=== PATIENT | female | born 1945 | race Caucasian/White ===

== ENCOUNTER → 2017-11-07 | Day surgery (SDC) | payer MEDICARE, OTHER, SELFPAY | END | disposition home or self-care (01) | PROVIDERS: PCP Family Medicine; Visit Provider Ophthalmology | DX: H25.11 Age-related nuclear cataract, right eye (principal); F03.90 Unspecified dementia, unspecified severity, without behavioral disturbance, psychotic disturbance, mood disturbance, and anxiety; F41.9 Anxiety disorder, unspecified | CPT/HCPCS: 66984; J2704 ==

== ENCOUNTER → 2018-04-29 09:29 | Outpatient (CLI) | payer MEDICARE, OTHER, SELFPAY ==
[2018-04-29 11:27] LABS: Alanine Aminotransferase 29 IU/L (9-52); Albumin 4.2 g/dL (3.5-5.0); Albumin Globulin Ratio 1.7 (1.0-2.8); Alkaline Phosphatase 82 U/L (38-126); Aspartate Aminotransferase 28 IU/L (14-36); BUN Creatinine Ratio 31.7 (6-22); Bilirubin Total 0.7 mg/dL (0.2-1.3); Blood Urea Nitrogen 19 mg/dL (7-17); Calcium 9.3 mg/dL (8.4-10.2); Carbon Dioxide 32 mmol/L (22-32); Chloride 102 mmol/L (98-107); Cholesterol 242 mg/dL (140-199); Estimated Glomerular Filt Rate > 60.0 mL/min (>60); Globulin 2.5 g/dL (1.7-4.1); Glucose 86 mg/dL (80-110); HDL Cholesterol 66 mg/dL (40-60); HEMOLYSIS < 15 (0-50); LDL Cholesterol Calculated 157 mg/dL (<100); Potassium 5.1 mmol/L (3.4-5.1); Sodium 143 mmol/L (137-145); Total Protein 6.7 g/dL (6.3-8.2); Triglycerides 93 mg/dL (35-150)
== END ==
PROVIDERS: Family Provider Family Medicine; PCP Family Medicine; Visit Provider Family Medicine
DX: E78.5 Hyperlipidemia, unspecified (principal); G31.84 Mild cognitive impairment of uncertain or unknown etiology
CPT/HCPCS: 36415; 80053; 80061

== ENCOUNTER 2018-04-30 11:05 | Emergency (ER) | payer MEDICARE, OTHER, SELFPAY ==
[2018-04-30 11:12] VITALS: BP 144/88; PULSE 61; RESP 14; TEMP 36.9; O2SAT 100; BMI 32.0
--- NOTE | 2018-04-30 11:46 | DI.RAD.S_ITS ---
PROCEDURE: XR FOOT RT MIN 3V INDICATIONS: fall with pain TECHNIQUE: 3 views of the foot were acquired. COMPARISON: [facility], CR, XR ANKLE RT MIN 3V, 04/30/2018, 11:51. FINDINGS: Bones: No fractures or dislocations. No suspicious bony lesions. Mild to moderate degenerative changes of the right foot joints are more prominent involving the forefoot joints. There are plantar and Achilles spurs present. Soft tissues: No tibiotalar joint effusion. Achilles tendon appears normal in thickness. IMPRESSION: No displaced fractures of the right foot are evident. Dictated by: Sav Hill M.D. on 04/30/2018 at 11:19 Approved by: Sav Hill M.D. on 04/30/2018 at 11:20
--- NOTE | 2018-04-30 11:46 | DI.RAD.S_ITS ---
PROCEDURE: XR ANKLE RT MIN 3V INDICATIONS: fall with pain TECHNIQUE: 3 views of the ankle were acquired. COMPARISON: [facility], , XR FOOT RT MIN 3V, 04/30/2018, 11:51. FINDINGS: Bones: No fractures or dislocations. Ankle mortise is normally aligned. No suspicious bony lesions. Mild degenerative changes of the hindfoot joints are present. Plantar and Achilles spurs are present. Soft tissues: No tibiotalar joint effusion. Achilles tendon appears normal in thickness. IMPRESSION: Mild degenerative changes of the ankle joint. No fractures. Dictated by: Sav Hill M.D. on 04/30/2018 at 11:20 Approved by: Sav Hill M.D. on 04/30/2018 at 11:21
[2018-04-30 12:15] VITALS: BP 139/83; PULSE 61; RESP 14; O2SAT 99
--- NOTE | 2018-04-30 12:15 | ED.LOWEXIN ---
HPI - Extremity Injury (Lower) <WILDER LucasBC - Last Filed: 04/30/18 13:50> General Chief Complaint: Extremity Injury, Lower Stated Complaint: fell hurt right foot Time Seen by Provider: 04/30/18 12:05 Source: patient and family Mode of arrival: ambulatory Limitations: no limitations History of Present Illness HPI Narrative: Patient is a 72-year-old female with history of dementia who presents with chief complaint of right ankle and foot pain. she states she was recently diagnosed with plantar fasciitis. She states that she was running across the road after a 3 mi walk and felt sudden pain in her right ankle and foot when she stepped down. She states she had a sensation of sudden swelling, but denies swelling at this point time. She states her heel bottom of foot and ankle hurts so bad she could not walk and her son had to help her get in the car to get here. She has not taken anything for the pain. She states she was wearing sneakers and denies any lacerations. Related Data Previous Rx's Medication Instructions Recorded clonidine HCl 0.1 mg tablet 0.1 mg PO QDAY #90 tab 02/11/18 loratadine 10 mg tablet 10 mg PO DAILY #90 tab 02/11/18 dextroamphetamine-amphetamine 10 10 mg PO BID #60 tab 04/05/18 mg tablet sertraline 50 mg tablet 50 mg PO DAILY #30 tab 04/05/18 memantine 10 mg tablet 10 mg PO BID #60 tab 04/17/18 Allergies Allergy/AdvReac Type Severity Reaction Status Date / Time rivastigmine [RIVASTIGMINE] Allergy Intermediate nausea/vomiting/abd Verified 04/30/18 13:13 pain codeine Allergy Mild VOMITING Verified 04/30/18 13:13 latex Allergy Mild LOCAL RASH Verified 04/30/18 13:13 adhesive AdvReac Mild SENSITIVE Verified 04/30/18 13:13 bupropion [From WELLBUTRIN] AdvReac Unknown hallucinati Verified 04/30/18 13:13 ons/disorie ntation Review of Systems <TJ Lucas - Last Filed: 04/30/18 13:50> Review of Systems GENERAL: Denies chills, fatigue, malaise, fever, sweats. HEENT: Denies sinus pain, ear pain, sore throat, difficulty swallowing, dizziness. RESPIRATORY: Denies dyspnea, cough, wheezing, hemoptysis, sputum. CARDIOVASCULAR: Denies chest pain, palpitations, orthopnea, edema, GASTROINTESTINAL: Denies nausea, vomiting, abdominal pain, diarrhea, constipation, melena. : Denies dysuria, frequency, incontinence, hematuria, urinary retention. MUSCULOSKELETAL: See HPI SKIN: see HPI NEUROLOGIC: Denies weakness, headache, numbness, change in speech, confusion, seizures, incoordination. PSYCHIATRIC: No concerning psychosocial issues. 12 point review of systems is negative except for those stated above Exam <AMINAH Lucas-BC - Last Filed: 04/30/18 13:50> Narrative Exam Narrative: GENERAL: This is a well-nourished, well-developed patient, lying on stretcher HEAD: Atraumatic. Normocephalic. No temporal or scalp tenderness. EYES: Pupils equal round and reactive. Extraocular motions intact. No scleral icterus. No injection or drainage. ENT: Nose without bleeding, purulent drainage or septal hematoma. Throat without erythema, tonsillar hypertrophy or exudate. Uvula midline. Airway patent. NECK: Trachea midline. No JVD or lymphadenopathy. Supple, nontender, no meningeal signs. CARDIOVASCULAR: Regular rate and rhythm RESPIRATORY: Clear to auscultation. Breath sounds equal bilaterally. No wheezes, rales, or rhonchi. EXTREMITIES: right foot has positive pedal pulses. Capillary refill less than 2 sec all toes right foot. Patient has pain to palpation of the dorsal aspect of her right foot, Achilles intact. Patient is able to flex, extend, pronate and supinate her right foot. BACK: Nontender without deformity or crepitance. No flank tenderness. NEURO: AOx3. SKIN: No abrasions swelling lacerations or deformity noted right foot and ankle. No ecchymosis noted. Initial Vital Signs Initial Vital Signs: Vital Signs Temperature 98.5 F 04/30/18 11:12 Pulse Rate 61 04/30/18 11:12 Respiratory Rate 14 04/30/18 11:12 Blood Pressure 144/88 H 04/30/18 11:12 Pulse Oximetry 100 04/30/18 11:12 <Jose Antonio Urbano DO - Last Filed: 04/30/18 13:59> Initial Vital Signs Initial Vital Signs: Vital Signs Temperature 98.5 F 04/30/18 11:12 Pulse Rate 61 04/30/18 11:12 Respiratory Rate 14 04/30/18 11:12 Blood Pressure 144/88 H 04/30/18 11:12 Pulse Oximetry 100 04/30/18 11:12 Course <TJ Lucas - Last Filed: 04/30/18 13:50> Orders Ordered: ED Orders 04/30/18 11:46 XR ankle RT min 3V Stat XR foot RT min 3V Stat Discontinued Medications Ketorolac Tromethamine (Toradol) 60 mg IM NOW ONE Stop: 04/30/18 12:34 Last Admin: 04/30/18 12:53 Dose: 60 mg Reevaluation(s) Reevaluation #1: Discussed negative x-ray results with patient. Discussed use of Toradol, wrapping ankle and ambulation. Time: 12:30 Vital Signs - 8 hr 04/30/18 11:12 04/30/18 12:15 Temperature 98.5 F Pulse Rate 61 61 Respiratory Rate 14 14 Blood Pressure 144/88 H Blood Pressure [Left Arm] 139/83 Pulse Oximetry 100 99 <Jose Antonio Urbano DO - Last Filed: 04/30/18 13:59> Orders Ordered: ED Orders 04/30/18 11:46 XR ankle RT min 3V Stat XR foot RT min 3V Stat Discontinued Medications Ketorolac Tromethamine (Toradol) 60 mg IM NOW ONE Stop: 04/30/18 12:34 Last Admin: 04/30/18 12:53 Dose: 60 mg Vital Signs - 8 hr 04/30/18 11:12 04/30/18 12:15 Temperature 98.5 F Pulse Rate 61 61 Respiratory Rate 14 14 Blood Pressure 144/88 H Blood Pressure [Left Arm] 139/83 Pulse Oximetry 100 99 MDM - Extremity Injury (Lower) <TJ Lucas - Last Filed: 04/30/18 13:50> Imaging Data foot xray: Radiologist's impression: [address] [address] XRay Report Signed Patient: Lanette Gray CMR#: [id number] : 6Acct:[id number] Age/Sex: 72 / FDate of Service: 04/30/18 Loc: ED Accession Number: [id number] Procedure: XR foot RT min 3V Ordering Provider: Jose Antonio Urbano D.O. PROCEDURE: XR FOOT RT MIN 3V INDICATIONS: fall with pain TECHNIQUE: 3 views of the foot were acquired. COMPARISON: [facility], CR, XR ANKLE RT MIN 3V, 04/30/2018, 11:51. FINDINGS: Bones: No fractures or dislocations. No suspicious bony lesions. Mild to moderate degenerative changes of the right foot joints are more prominent involving the forefoot joints. There are plantar and Achilles spurs present. Soft tissues: No tibiotalar joint effusion. Achilles tendon appears normal in thickness. IMPRESSION: No displaced fractures of the right foot are evident. Dictated by: Sav Hill M.D. on 04/30/2018 at 11:19 Approved by: Sav Hill M.D. on 04/30/2018 at 11:20 ankle xray: Radiologist's impression: [facility] DATE TYPE STATUS AUTHOR Hx 04/30/18 11:46 Sav Hill 04/30/18 11:46 Sav Hill GrayLanette frye C 72, F108/04/1944 [facility], ED - [facility] ED: R10 157.48cm 79.379kg BSA: 1.81m? BMI: 32.0kg/m? Extremity Injury, Lower Search Chart rivastigmine (RIVASTIGMINE) nausea/vomiting/abd pain codeine VOMITING latex LOCAL RASH adhesive SENSITIVE bupropion (From WELLBUTRIN) hallucinations/disorientation ONSET 03/05/13 06/07/11 05/01/14 06/29/14 06/29/14 06/29/14 06/28/15 05/16/17 05/16/17 Today 12:[address] [address] XRay Report Signed Patient: IsaacLanette CMR#: [id number] : 1945cct:[id number] Age/Sex: 72 / FDate of Service: 04/30/18 Loc: ED Accession Number: [id number] Procedure: XR ankle RT min 3V Ordering Provider: Jose Antonio Urbano D.O. PROCEDURE: XR ANKLE RT MIN 3V INDICATIONS: fall with pain TECHNIQUE: 3 views of the ankle were acquired. COMPARISON: [facility], CR, XR FOOT RT MIN 3V, 04/30/2018, 11:51. FINDINGS: Bones: No fractures or dislocations. Ankle mortise is normally aligned. No suspicious bony lesions. Mild degenerative changes of the hindfoot joints are present. Plantar and Achilles spurs are present. Soft tissues: No tibiotalar joint effusion. Achilles tendon appears normal in thickness. IMPRESSION: Mild degenerative changes of the ankle joint. No fractures. Dictated by: Sav Hill M.D. on 04/30/2018 at 11:20 Approved by: Sav Hill M.D. on 04/30/2018 at 11:21 MDM Narrative Medical decision making narrative: The patient presents with chief complaint of right-sided foot pain after taking heavy step while running across the street. She had a negative x-ray of her right foot and ankle. She is hemodynamically stable and pulse motor sensory is intact In her right foot. She was treated with Toradol in the emergency department. She was given an air cast for support. She states she has crutches at home. I discussed at length follow up with primary care for new or worsening symptoms. Discharge Plan Departure Patient Disposition: Home Clinical Impression: Acute pain of right foot Instructions: How To Perform RICE (Rest, Ice, Compress, Elevate), DI for Foot Pain Activity Restrictions/Additional Instructions: Your x-rays came back with no fracture seen. We have given you a pain injection called Toradol in the emergency department. Please do not take any NSAIDs for 6-8 hours after the injection. Please use rest, ice, compression and elevation. I think you may be having some pain related to her plantar fasciitis given where your pain is. Please follow-up with your primary care provider if worsening or no improvement. Prescriptions: No Action clonidine HCl 0.1 mg tablet 0.1 mg PO QDAY Qty: 90 RF: 1 loratadine [Claritin] 10 mg tablet 10 mg PO DAILY Qty: 90 RF: 1 memantine 10 mg tablet 10 mg PO BID Qty: 60 RF: 1 sertraline 50 mg tablet 50 mg PO DAILY Qty: 30 RF: 1 dextroamphetamine-amphetamine 10 mg tablet 10 mg PO BID Qty: 60 RF: 0 Referrals: Chantell Kuhn DO [Primary Care Provider] - <Jose Antonio Urbano DO - Last Filed: 04/30/18 13:59> Cosign ED Attending Nanda Attestation: I was available for consultation during this patient's emergency department encounter
--- NOTE | 2018-04-30 12:19 | ED_ITS ---
HPI - Extremity Injury (Lower) <WILDER LucasBC - Last Filed: 04/30/18 13:50> General Chief Complaint: Extremity Injury, Lower Stated Complaint: fell hurt right foot Time Seen by Provider: 04/30/18 12:05 Source: patient and family Mode of arrival: ambulatory Limitations: no limitations History of Present Illness HPI Narrative: Patient is a 72-year-old female with history of dementia who presents with chief complaint of right ankle and foot pain. she states she was recently diagnosed with plantar fasciitis. She states that she was running across the road after a 3 mi walk and felt sudden pain in her right ankle and foot when she stepped down. She states she had a sensation of sudden swelling, but denies swelling at this point time. She states her heel bottom of foot and ankle hurts so bad she could not walk and her son had to help her get in the car to get here. She has not taken anything for the pain. She states she was wearing sneakers and denies any lacerations. Related Data Previous Rx's Medication Instructions Recorded clonidine HCl 0.1 mg tablet 0.1 mg PO QDAY #90 tab 02/11/18 loratadine 10 mg tablet 10 mg PO DAILY #90 tab 02/11/18 dextroamphetamine-amphetamine 10 10 mg PO BID #60 tab 04/05/18 mg tablet sertraline 50 mg tablet 50 mg PO DAILY #30 tab 04/05/18 memantine 10 mg tablet 10 mg PO BID #60 tab 04/17/18 Allergies Allergy/AdvReac Type Severity Reaction Status Date / Time rivastigmine [RIVASTIGMINE] Allergy Intermediate nausea/vomiting/abd Verified 13:13 pain codeine Allergy Mild VOMITING Verified 04/30/18 13:13 latex Allergy Mild LOCAL RASH Verified 04/30/18 13:13 adhesive AdvReac Mild SENSITIVE Verified 04/30/18 13:13 bupropion [From WELLBUTRIN] AdvReac Unknown hallucinati Verified 04/30/18 13:13 ons/disorie ntation Review of Systems <TJ Lucas - Last Filed: 04/30/18 13:50> Review of Systems GENERAL: Denies chills, fatigue, malaise, fever, sweats. HEENT: Denies sinus pain, ear pain, sore throat, difficulty swallowing, dizziness. RESPIRATORY: Denies dyspnea, cough, wheezing, hemoptysis, sputum. CARDIOVASCULAR: Denies chest pain, palpitations, orthopnea, edema, GASTROINTESTINAL: Denies nausea, vomiting, abdominal pain, diarrhea, constipation, melena. : Denies dysuria, frequency, incontinence, hematuria, urinary retention. MUSCULOSKELETAL: See HPI SKIN: see HPI NEUROLOGIC: Denies weakness, headache, numbness, change in speech, confusion, seizures, incoordination. PSYCHIATRIC: No concerning psychosocial issues. 12 point review of systems is negative except for those stated above Exam <AMINAH Lucas-BC - Last Filed: 04/30/18 13:50> Narrative Exam Narrative: GENERAL: This is a well-nourished, well-developed patient, lying on stretcher HEAD: Atraumatic. Normocephalic. No temporal or scalp tenderness. EYES: Pupils equal round and reactive. Extraocular motions intact. No scleral icterus. No injection or drainage. ENT: Nose without bleeding, purulent drainage or septal hematoma. Throat without erythema, tonsillar hypertrophy or exudate. Uvula midline. Airway patent. NECK: Trachea midline. No JVD or lymphadenopathy. Supple, nontender, no meningeal signs. CARDIOVASCULAR: Regular rate and rhythm RESPIRATORY: Clear to auscultation. Breath sounds equal bilaterally. No wheezes , rales, or rhonchi. EXTREMITIES: right foot has positive pedal pulses. Capillary refill less than 2 sec all toes right foot. Patient has pain to palpation of the dorsal aspect of her right foot, Achilles intact. Patient is able to flex, extend, pronate and supinate her right foot. BACK: Nontender without deformity or crepitance. No flank tenderness. NEURO: AOx3. SKIN: No abrasions swelling lacerations or deformity noted right foot and ankle. No ecchymosis noted. Initial Vital Signs Initial Vital Signs: Vital Signs Temperature 98.5 F 04/30/18 11:12 Pulse Rate 61 04/30/18 11:12 Respiratory Rate 14 04/30/18 11:12 Blood Pressure 144/88 H 04/30/18 11:12 Pulse Oximetry 100 04/30/18 11:12 <Jose Antonio Urbano DO - Last Filed: 04/30/18 13:59> Initial Vital Signs Initial Vital Signs: Vital Signs Temperature 98.5 F 04/30/18 11:12 Pulse Rate 61 04/30/18 11:12 Respiratory Rate 14 04/30/18 11:12 Blood Pressure 144/88 H 04/30/18 11:12 Pulse Oximetry 100 04/30/18 11:12 Course <TJ Lucas - Last Filed: 04/30/18 13:50> Orders Ordered: ED Orders 04/30/18 11:46 XR ankle RT min 3V Stat XR foot RT min 3V Stat Discontinued Medications Ketorolac Tromethamine (Toradol) 60 mg IM NOW ONE Stop: 04/30/18 12:34 Last Admin: 04/30/18 12:53 Dose: 60 mg Reevaluation(s) Reevaluation #1: Discussed negative x-ray results with patient. Discussed use of Toradol, wrapping ankle and ambulation. Time: 12:30 Vital Signs - 8 hr 04/30/18 11:12 04/30/18 12:15 Temperature 98.5 F Pulse Rate 61 61 Respiratory Rate 14 14 Blood Pressure 144/88 H Blood Pressure [Left Arm] 139/83 Pulse Oximetry 100 99 <Jose Antonio Urbano DO - Last Filed: 04/30/18 13:59> Orders Ordered: ED Orders 04/30/18 11:46 XR ankle RT min 3V Stat XR foot RT min 3V Stat Discontinued Medications Ketorolac Tromethamine (Toradol) 60 mg IM NOW ONE Stop: 04/30/18 12:34 Last Admin: 04/30/18 12:53 Dose: 60 mg Vital Signs - 8 hr 04/30/18 11:12 04/30/18 12:15 Temperature 98.5 F Pulse Rate 61 61 Respiratory Rate 14 14 Blood Pressure 144/88 H Blood Pressure [Left Arm] 139/83 Pulse Oximetry 100 99 MDM - Extremity Injury (Lower) <TJ Lucas - Last Filed: 04/30/18 13:50> Imaging Data foot xray: Radiologist's impression: [address] [address] XRay Report Signed Patient: Lanette Gray CMR#: [id number] : 6Acct:[id number] Age/Sex: 72 / FDate of Service: 04/30/18 Loc: ED Accession Number: [id number] Procedure: XR foot RT min 3V Ordering Provider: Jose Antonio Urbano D.O. PROCEDURE: XR FOOT RT MIN 3V INDICATIONS: fall with pain TECHNIQUE: 3 views of the foot were acquired. COMPARISON: [facility], CR, XR ANKLE RT MIN 3V, 04/30/2018, 11:51. FINDINGS: Bones: No fractures or dislocations. No suspicious bony lesions. Mild to moderate degenerative changes of the right foot joints are more prominent involving the forefoot joints. There are plantar and Achilles spurs present. Soft tissues: No tibiotalar joint effusion. Achilles tendon appears normal in thickness. IMPRESSION: No displaced fractures of the right foot are evident. Dictated by: Sav Hill M.D. on 04/30/2018 at 11:19 Approved by: Sav Hill M.D. on 04/30/2018 at 11:20 ankle xray: Radiologist's impression: [facility] DATE TYPE STATUS AUTHOR Hx 04/30/18 11:46 Sav Hill 04/30/18 11:46 Sav Hill GrayLanette frye C 72, F108/04/1944 [facility], ED - [facility] ED: R10 157.48cm 79.379kg BSA: 1.81m? BMI: 32.0kg/m? Extremity Injury, Lower Search Chart rivastigmine (RIVASTIGMINE) nausea/vomiting/abd pain codeine VOMITING latex LOCAL RASH adhesive SENSITIVE bupropion (From WELLBUTRIN) hallucinations/disorientation ONSET 03/05/13 06/07/11 05/01/14 06/29/14 06/29/14 06/29/14 06/28/15 05/16/17 05/16/17 Today 12:[address] [address] XRay Report Signed Patient: IsaacLanette CMR#: [id number] : 1945cct:[id number] Age/Sex: 72 / FDate of Service: 04/30/18 Loc: ED Accession Number: [id number] Procedure: XR ankle RT min 3V Ordering Provider: Jose Antonio Urbano D.O. PROCEDURE: XR ANKLE RT MIN 3V INDICATIONS: fall with pain TECHNIQUE: 3 views of the ankle were acquired. COMPARISON: [facility], CR, XR FOOT RT MIN 3V, 04/30/2018, 11:51. FINDINGS: Bones: No fractures or dislocations. Ankle mortise is normally aligned. No suspicious bony lesions. Mild degenerative changes of the hindfoot joints are present. Plantar and Achilles spurs are present. Soft tissues: No tibiotalar joint effusion. Achilles tendon appears normal in thickness. IMPRESSION: Mild degenerative changes of the ankle joint. No fractures. Dictated by: Sav Hill M.D. on 04/30/2018 at 11:20 Approved by: Sav Hill M.D. on 04/30/2018 at 11:21 MDM Narrative Medical decision making narrative: The patient presents with chief complaint of right-sided foot pain after taking heavy step while running across the street. She had a negative x-ray of her right foot and ankle. She is hemodynamically stable and pulse motor sensory is intact In her right foot. She was treated with Toradol in the emergency department. She was given an air cast for support. She states she has crutches at home. I discussed at length follow up with primary care for new or worsening symptoms. Discharge Plan Departure Patient Disposition: Home Clinical Impression: Acute pain of right foot Instructions: How To Perform RICE (Rest, Ice, Compress, Elevate), DI for Foot Pain Activity Restrictions/Additional Instructions: Your x-rays came back with no fracture seen. We have given you a pain injection called Toradol in the emergency department. Please do not take any NSAIDs for 6-8 hours after the injection. Please use rest, ice, compression and elevation. I think you may be having some pain related to her plantar fasciitis given where your pain is. Please follow-up with your primary care provider if worsening or no improvement. Prescriptions: No Action clonidine HCl 0.1 mg tablet 0.1 mg PO QDAY Qty: 90 RF: 1 loratadine [Claritin] 10 mg tablet 10 mg PO DAILY Qty: 90 RF: 1 memantine 10 mg tablet 10 mg PO BID Qty: 60 RF: 1 sertraline 50 mg tablet 50 mg PO DAILY Qty: 30 RF: 1 dextroamphetamine-amphetamine 10 mg tablet 10 mg PO BID Qty: 60 RF: 0 Referrals: Chantell Kuhn DO [Primary Care Provider] - <Jose Antonio Urbano DO - Last Filed: 04/30/18 13:59> Cosign ED Attending Nanda Attestation: I was available for consultation during this patient's emergency department encounter
[2018-04-30] MEDS: KETOROLAC 60 MG/2 ML VIAL IM (12:53)
[2018-04-30 13:30] VITALS: BP 136/86; PULSE 89; RESP 16; O2SAT 98
== END 2018-04-30 13:30 | disposition home or self-care (01) ==
PROVIDERS: Emergency Provider Nurse Practitioner Family; Family Provider Family Medicine; PCP Family Medicine
DX: M79.671 Pain in right foot (principal); Y93.02 Activity, running
CPT/HCPCS: 29515; 29540; 73610; 73630; 96372; 99283; J1885

== ENCOUNTER → 2019-01-24 15:31 | Outpatient (CLI) | payer MEDICARE, OTHER, SELFPAY ==
[2019-01-24 16:26] LABS: Add Manual Diff / Slide Review NO; Basophils Absolute Auto 0 /uL (0-100); Basophils Percent Auto 0.4 % (0-2); Eosinophils Absolute Auto 100 /uL (0-450); Eosinophils Percent Auto 1.2 % (2-4); Hematocrit 38.5 % (36-46); Hemoglobin 13.2 g/dL (12.0-16.0); Lymphocytes Absolute Auto 1800 /uL (1100-4500); Lymphocytes Percent Auto 27.5 % (25-40); Mean Corpuscular HGB Conc 34.2 % (30-36); Mean Corpuscular Hemoglobin 30.6 PG (26-34); Mean Corpuscular Volume 89.6 fL (80-100); Monocytes Absolute Auto 400 /uL (0-900); Monocytes Percent Auto 6.2 % (3-14); Neutrophils Absolute Auto 4400 /uL (1500-7000); Neutrophils Percent Auto 64.7 % (50-75); Platelet Count 258 X10^3/uL (150-400); Red Cell Distribution Width 13.7 % (11.6-14.8); White Blood Cell Count 6.7 X10^3/uL (4.5-11.0)
[2019-01-24 17:09] LABS: Erythrocyte Sedimentation Rate 20 MM/HR (0-20)
[2019-01-24 18:22] LABS: Alanine Aminotransferase 28 IU/L (9-52); Albumin 4.7 g/dL (3.5-5.0); Albumin Globulin Ratio 1.8 (1.0-2.8); Alkaline Phosphatase 97 U/L (38-126); Aspartate Aminotransferase 28 IU/L (14-36); Bilirubin Total 0.8 mg/dL (0.2-1.3); Blood Urea Nitrogen 18 mg/dL (7-17); C-Reactive Protein Quant 1.5 mg/dL (<1.0); Calcium 10.1 mg/dL (8.4-10.2); Carbon Dioxide 27 mmol/L (22-32); Chloride 105 mmol/L (98-107); Estimated Glomerular Filt Rate > 60.0 mL/min (>60); Globulin 2.6 g/dL (1.7-4.1); Glucose 86 mg/dL (80-110); HEMOLYSIS < 15 (0-50); Sodium 142 mmol/L (137-145); Total Protein 7.3 g/dL (6.3-8.2)
[2019-01-24 18:26] LABS: Potassium 5.7 mmol/L (3.4-5.1)
[2019-01-24 18:45] LABS: TSH w/ Reflex to FT4 3.62 uIU/mL (0.47-4.68)
== END ==
PROVIDERS: PCP Family Medicine; Visit Provider Registered Nurse
DX: K52.9 Noninfective gastroenteritis and colitis, unspecified (principal)
CPT/HCPCS: 36415; 80053; 84443; 85025; 85651; 86140

== ENCOUNTER → 2019-01-27 16:30 | Outpatient (CLI) | payer MEDICARE, OTHER, SELFPAY ==
[2019-01-31 22:45] LABS: Calprotectin, Stool 35.3 mcg/g
== END ==
PROVIDERS: PCP Family Medicine; Visit Provider Registered Nurse
DX: K52.9 Noninfective gastroenteritis and colitis, unspecified (principal)
CPT/HCPCS: 83993; 87045; 87177; 87899

== ENCOUNTER → 2019-01-30 10:25 | Outpatient (CLI) | payer MEDICARE, OTHER, SELFPAY ==
[2019-01-30 12:05] LABS: C-Reactive Protein Quant 1.4 mg/dL (<1.0); HEMOLYSIS < 15 (0-50); Potassium 4.2 mmol/L (3.4-5.1)
== END ==
PROVIDERS: PCP Family Medicine; Visit Provider Registered Nurse
DX: R79.82 Elevated C-reactive protein (CRP) (principal); E87.5 Hyperkalemia
CPT/HCPCS: 36415; 84132; 86140

== ENCOUNTER → 2019-02-20 15:56 | Outpatient (CLI) | payer MEDICARE, OTHER, SELFPAY | PROVIDERS: PCP Family Medicine; Visit Provider Family Medicine | DX: M54.31 Sciatica, right side (principal) ==

== ENCOUNTER → 2019-02-27 15:58 | Outpatient (CLI) | payer MEDICARE, OTHER, SELFPAY ==
--- NOTE | 2019-02-27 16:05 | DI.MRI.S_ITS ---
PROCEDURE: MR LUMBAR SPINE WO CON INDICATIONS: Low back and right hip/buttock pain TECHNIQUE: Noncontrast sagittal T1 spin echo and T2 fast echo, sagittal STIR, axial T1 and T2 fast spin echo through the lumbar spine. In cases with scoliosis, additional coronal T2 fast spin echo may be performed. COMPARISON: None. FINDINGS: Image quality: Excellent. Alignment and Curvature: There is normal bony alignment. Bone Marrow: Multilevel degenerative endplate sclerosis and spurring. Diffuse facet arthropathy. No acute fracture Spinal Cord: Conus medullaris terminates at the L1 level. Visualized cord demonstrates normal signal and size. Paraspinous Soft Tissues: No paravertebral masses. L1-L2: Normal appearance. L2-L3: Normal appearance. L3-L4: No central canal narrowing. Lateral recesses appear grossly patent. No right foraminal stenosis. Mild left foraminal narrowing L4-L5: broad-based posterior disc bulge and bilateral facet disease. Mild central canal narrowing. No left foraminal stenosis. Mild to moderate right foraminal narrowing with nerve root compression L5-S1: Central disc protrusion. Bilateral facet disease. Lateral recesses grossly patent. No foraminal stenosis. IMPRESSION: Mild to moderate right foraminal narrowing at L4-L5. Elsewhere, no high-grade canal or foraminal stenosis. Dictated by: Prosper Alvarado M.D. on 02/28/2019 at 8:11 Approved by: Prosper Alvarado M.D. on 02/28/2019 at 8:16
== END ==
PROVIDERS: PCP Family Medicine; Visit Provider Family Medicine
DX: M54.31 Sciatica, right side (principal); M54.5 Low back pain; M25.551 Pain in right hip; M48.061 Spinal stenosis, lumbar region without neurogenic claudication
CPT/HCPCS: 72148

== ENCOUNTER 2019-05-20 14:28 | Outpatient (CLI) | payer MEDICARE, OTHER, SELFPAY ==
--- NOTE | 2019-05-20 14:33 | DI.RAD.S_ITS ---
PROCEDURE: PAIN L/S TRANSFORAMINAL INJECT INDICATIONS: SPONDYLOSIS FINDINGS: Fluoroscopic spot filming was performed to verify placement of spinal needles at the right L4-L5 level(s), as labeled on the films. Appropriate location(s) of the needle tip(s) was confirmed by injection of iodinated contrast. IMPRESSION: Right L4-L5 transforaminal needle placement. Dictated by: Dominguez Ramos M.D. on 05/20/2019 at 17:37 Approved by: Dominguez Ramos M.D. on 05/20/2019 at 17:38
[2019-05-20 14:49] VITALS: BP 124/74; PULSE 81; RESP 16; TEMP 36.6; O2SAT 98
[2019-05-20 15:21] VITALS: BP 122/70; PULSE 81; RESP 18; O2SAT 98
[2019-05-20 15:26] VITALS: BP 123/67; PULSE 78; RESP 16; O2SAT 97
[2019-05-20] MEDS: BETAMETHASONE 30 MG/5 ML MDV 6 MG INJ (15:30)
[2019-05-20 15:31] VITALS: BP 121/68; PULSE 87; RESP 16; O2SAT 98
[2019-05-20] MEDS: BUPIVACAINE 0.25% (PF) VIAL 2 ML INJ (15:35)
[2019-05-20] MEDS: IOPAMIDOL 15 ML VIAL 3 ML INJ (15:35)
[2019-05-20] MEDS: DEXAMETHASONE 10 MG/ML VIAL 20 MG INJ (15:35)
--- NOTE | 2019-05-20 15:35 | PM.PROC.1 ---
Procedures Date/Time Date of procedure: 05/20/19 Time of procedure: 15:35 General Procedure description: PREOP DIAGNOSIS 1. FORMAINAL STENOSIS WITH LE SYMPTOMS POST OP DIAGNOSIS 1. FORMAINAL STENOSIS WITH LE SYMPTOMS PROCEDURES 1. FLUOROSCOPICALLY GUIDED CONTRAST CONTROLLED TRANSFORAMINAL EPIDURAL STEROID INJECTION - RIGHT L4/5 TFESI PHYSICIAN: Blaze Valencia DO INDICATIONS: Lanette is referred by Dr. Forte for treatment of Foraminal Stenosis with Right LE Symptoms FINDINGS Foraminal Nerve Root Compression secondary to disc disease and facet hypertrophy DESCRIPTION OF PROCEDURE: Following review of allergy and review of potential side effects and complications, including, but not necessarily limited to, infection, allergic reaction, local tissue breakdown, stroke, temporary or permanent nerve injury, paralysis, and possible , the patient indicated that the patient understood and agreed to proceed. An informed consent document was signed by the patient, witnessed by a nurse, and placed in the patient's chart. Additionally, other treatment options including medications, modalities, and physical therapy were reviewed with the patient. After review of previous anaesthesic history and IV conscious sedation the patient was deemed safe to proceed with todays procedure with IV conscious sedation as ASA class II designation. Safety time-out was performed to confirm patient ID, procedure to be performed and site of procedure. IV sedation was deemed unnecessary do to oral sedation prior and thus was not administered by the RN after DO order, titrated to patient comfort during the course of the procedure while the patient remained responsive to all verbal commands In the prone position following sterile prep and drape of the lumbar region, the Right L4/5 posterior neuroforamen was identified fluoroscopically. The skin was anesthetized via a 25-gauge 1.5-inch needle with 1% lidocaine solution. At this point, a 25-gauge 3.5-inch spinal needle was atraumatically introduced and advanced under fluoroscopic guidance through the posterior right L4/5 neuroforamen to approximately the anterior aspect of the canal. Depth was confirmed on lateral view. Following negative aspiration, injection of approximately 1.5 cc of Isovue 200 under live fluoroscopy in the AP view confirmed excellent flow along the nerve root, into the epidural space without vascular or intrathecal uptake observed Radiological data, including multiple fluoroscopic views of the lumbosacral spine, reveal a spinal needle at the right L4/5 posterior neuroforamen. Subsequent views show flow of contrast material flowing superiorly and inferiorly along the nerve root confirming epidural flow. Subsequently, a test dose of 1.5 cc of 1% lidocaine solution was administered and patient was observed for two minutes for signs or symptoms of complications, including abdominal pain, shortness of breath, bilateral upper or lower extremity weakness, nausea and vomiting, prior to steroid injection. At this point, a total of 3cc or 20mg of dexamethasone and 6mg of betamethasone was injected without incident. The procedure tolerated the procedure well without signs or symptoms of complications prior to transfer to the recovery area continued monitoring without incident.The patient was then transferred to the recovery area where they were observed for an appropriate time after the injection. The patient reported a VAS score of 7 prior to the procedure and a post-procedure VAS of 0. Total Fluoroscopy Time: 20.9 seconds Total Conscious Sedation Time: 24min POST OP INSTRUCTIONS The patient was provided a Pain Log to continue to record their response to the target-specific procedure prior to follow-up visit with their referring physician. Additionally, specific post-injection care instructions and a contact number to our office were provided if concerns arise regarding possible complications associated with the procedure are suspected. Blaze Valencia DO Complications: none
[2019-05-20 15:43] VITALS: BP 125/68; PULSE 80; RESP 16; O2SAT 98
--- NOTE | 2019-05-20 15:44 | PC.NURSE ---
PT GIVEN NO SEDATION MEDS DURING PROCEDURE. ACCEPTED CARE OF PT IN POST PROC AREA IN STABLE CONDITION.
--- NOTE | 2019-05-20 15:51 | PC.NURSE ---
Post procedure note: Patient tolerated procedure without medication and Minimal discomfort with local anesthetic. VSS throughout procedure. Able to sit up and transfer to wheelchair without difficulties. No complaints of pain. Transfered for post procedure monitoring. Daughter at chairside. Handoff report given to Lopez Abdullahi RN.
== END 2019-05-20 16:04 | disposition home or self-care (01) ==
PROVIDERS: PCP Family Medicine; Visit Provider Physical Medicine & Rehabilitation
DX: M48.061 Spinal stenosis, lumbar region without neurogenic claudication (principal); M51.16 Intervertebral disc disorders with radiculopathy, lumbar region
CPT/HCPCS: 64483; 99152; J0702; J1100; J2250; J3010

== ENCOUNTER → 2019-12-05 15:27 | Outpatient (CLI) | payer MEDICARE, OTHER, SELFPAY ==
[2019-12-05 16:05] LABS: Add Manual Diff / Slide Review NO; Basophils Absolute Auto 0 /uL (0-100); Basophils Percent Auto 0.3 % (0-2); Eosinophils Absolute Auto 100 /uL (0-450); Hematocrit 35.8 % (36-46); Hemoglobin 12.5 g/dL (12.0-16.0); Lymphocytes Absolute Auto 1700 /uL (1100-4500); Lymphocytes Percent Auto 31.6 % (25-40); Mean Corpuscular HGB Conc 34.9 % (30-36); Mean Corpuscular Hemoglobin 31.6 PG (26-34); Mean Corpuscular Volume 90.6 fL (80-100); Monocytes Absolute Auto 300 /uL (0-900); Monocytes Percent Auto 5.5 % (3-14); Neutrophils Absolute Auto 3400 /uL (1500-7000); Neutrophils Percent Auto 61.6 % (50-75); Platelet Count 225 X10^3/uL (150-400); Red Blood Cell Count 3.95 X10^6/uL (4.0-5.2); Red Cell Distribution Width 13.6 % (11.6-14.8); White Blood Cell Count 5.5 X10^3/uL (4.5-11.0)
[2019-12-05 16:51] LABS: Alanine Aminotransferase 14 IU/L (<35); Albumin 4.2 g/dL (3.5-5.0); Albumin Globulin Ratio 1.4 (1.0-2.8); Alkaline Phosphatase 73 U/L (38-126); Aspartate Aminotransferase 23 IU/L (14-36); Bilirubin Total 0.2 mg/dL (0.2-1.3); Blood Urea Nitrogen 18 mg/dL (7-17); Calcium 9.2 mg/dL (8.4-10.2); Carbon Dioxide 31 mmol/L (22-32); Chloride 102 mmol/L (98-107); Estimated Glomerular Filt Rate > 60.0 mL/min (>60); Globulin 3.1 g/dL (1.7-4.1); Glucose 162 mg/dL (80-110); HEMOLYSIS < 15 (0-50); Potassium 3.5 mmol/L (3.4-5.1); Sodium 139 mmol/L (137-145); Total Protein 7.3 g/dL (6.3-8.2)
[2019-12-05 16:52] LABS: Creatinine Urine Random 56.9 mg/dL
[2019-12-05 16:56] LABS: Microalbumin Urine Random 0.8 mg/dL (0-1.6)
== END ==
PROVIDERS: PCP Family Medicine; Referring Provider Family Medicine; Visit Provider Family Medicine
DX: Z79.899 Other long term (current) drug therapy (principal)
CPT/HCPCS: 36415; 80053; 82043; 82570; 85025

== ENCOUNTER 2020-04-01 15:16 | Outpatient (RCR) | payer MEDICARE, OTHER, SELFPAY ==
--- NOTE | 2020-04-02 15:36 | ST.IPSLE ---
Visit Care Team Role Provider Type Chantell Kuhn DO Attending Provider Physician Primary Care Provider Referring Provider Specialty: [facility] Address: [address] [place] [address], [address], [address] Email: [email or web address] Current Diagnoses Unspecified dementia without behavioral disturbance (04/01/20) Past Medical History (Last Updated 12/08/19 @ 15:58 by Chantell Kuhn DO) Anxiety (Chronic Medical 05/01/14) Attention deficit disorder (Chronic Medical 06/07/11) Diarrhea (Inactive Medical) cscope 04/10/2019 without source, no colitis or polyps, normal mucosa Diverticulosis (Acute Medical) mild ascending and sigmoid on c-scope 03/2019 Family history of drug dependence (Chronic Medical 06/28/15) Hyperlipidemia (Chronic Medical) IBS (irritable bowel syndrome) (Chronic Medical) Initial insomnia (Chronic Medical 05/16/17) Migraines (Chronic Medical) Catemenial Mild cognitive impairment (Chronic Medical 05/16/17) Other and unspecified hyperlipidemia (Chronic Medical 03/05/13) Prolapse of anterior vaginal wall (Chronic Medical 06/29/14) Prolapse of posterior vaginal wall (Chronic Medical 06/29/14) Rosacea (Chronic Medical) Spondylosis of lumbosacral region without myelopathy or radiculopathy (Acute Medical) Varicose veins of vulva and perineum (Chronic Medical 06/29/14) Speech-Language Pathology Speech/Language Eval JACQU[employer]TER Adult Cognitive Linguistic Eval Start: 04/01/20 16:39 Freq: Status: Active Protocol: Document 04/01/20 16:40 LNK (Rec: 04/01/20 17:13 LNK [id number]) Adult Cognitive Linguistic Evaluation Session Time Visit Start Date 04/01/20 Visit Start Time 15:30 Visit Stop Time 16:30 Total Visit Minutes 60 Visit Information Visit Number [address] Kuhn Reason for Referral demetia/word finding Setting Assessment Location Outpatient Care Visit Type Note Type Initial evaluation Next Note Type Next Note Type Discharge Summary Patient Information Medical History Pt is a 74 year old female referred for a language assessment secondary to difficulty with word-finding. Pt has been diagnosed with dementia/Alzheimer's disease. She currently live in an assisted living facility in [facility]. Pt reports having a problem talking, specifically word-finding when she is speaking to family or other residents. She states that mornings are better for her, but in the afternoon, she prefers to stay in her room watching TV. Pt is accompanied by her daughter, Sonia. Education Level HS Hearing Hearing Level Normal Vision Vision Status Impaired Comments wears glasses Previous Therapy Previous Speech-Language Therapy No Subjective Mental Status Confused Assessment Oral Motor Examination Completed No: Informal observation noted clear speech, structures WFL Informal Assessment Receptive Language Normal Yes: Understands what is said. May forget in a minute or two Pragmatic Language Normal Yes Speech Normal Yes Cognition Normal No Cognitive Impairment(s) Short-term memory,Executive functioning,Thought organization Formal Assessment Administration Complete Results [place] Naming Test was administered to the Pt. Pt is shown pictures and asked name the item in the picture. 20 pictures were shown to the Pt. The test was discontinued after 20 pictures because pt was having difficulty with naming. Of the 20 pictures, Pt was able to immediately name 9 pictures with 3 pictures requiring extra time. The remaining 8 pictures required cueing to recall the name of the picture item: 5 pictures required maria luz options with 4 options, 3 pictures required a phonemic cue of the first sound of the word. Several times during this assessment, the pt would describe the function of or remark about an unusual characteristic the item. Findings/Results Language Function Moderately-severely impaired Cognitive Function Moderately impaired Findings The pt presents with significant word-finding difficulty secondary to dementia. The results of the assessment were discussed with the pt and her daughter, It was pointed out to the pt that she has been using strategies to help her remember words such as descriptions, item functions or unusual characteristics. These assist the listener in understanding. Additionally, the pt noted that her daughter and other listeners are free to offer help/suggestions when the pt struggles with words. Finally, the daughter asked if there were other things that she may do to help her mother. Word games, puzzles, picture naming, fill in the blank etc. types of activities were listed. ST was not recommended as the pt and her daughter are either currently applying appropriate strategies or are willing to increase activities designed to help pt with word-finding. Prognosis Prognosis Fair Based on Cognitive status,Family support Plan of Care Speech-Language Treatment No Patient/Caregiver Education Described results of evaluation,Patient expressed understanding of evaluation, Patient expressed agreement with goals and treatment plans ,Family/caregivers expressed understanding of evaluation, Family/caregivers expressed agreement with goals and treatment plan Discharge Recommendations half-way care facility
--- NOTE | 2020-07-28 15:21 | ST.OPDS ---
Visit Care Team Role Provider Type Chantell Kuhn DO Attending Provider Physician Primary Care Provider Referring Provider Address: [address] [place] [address], [address], [address] PARTS DESIGNER Treatment Note PARTS DESIGNER Treatment Note Start: 04/01/20 16:38 Freq: Status: Active Protocol: Document 07/28/20 15:19 LNK (Rec: 07/28/20 15:21 LNK [id number]) Speech Pathology Treatment Note Visit Type Note Type Discharge Summary General Information General Information Pt is a 74 year old female referred for a language assessment secondary to difficulty with word-finding. Pt has been diagnosed with dementia/Alzheimer's disease. She currently live in an assisted living facility in [facility]. Pt reports having a problem talking, specifically word-finding when she is speaking to family or other residents. She states that mornings are better for her, but in the afternoon, she prefers to stay in her room watching TV. Pt is accompanied by her daughter, Sonia. Subjective Observations/Patient Presentation The pt presents with significant word-finding difficulty secondary to dementia. The results of the assessment were discussed with the pt and her daughter, It was pointed out to the pt that she has been using strategies to help her remeber words such as descriptions, item functions or unusual characteristics. These assist the listener in understanding. Additionally, the pt noted that her daughter and other listeners are free to offer help/suggestions when the pt struggles with words. Finally, the daughter asked if there were other things that she may do to help her mother. Word games, puzzles, picture naming, filling the blank etc. types of activities were listed. ST was not recommended as the pt and her daughter are either currently applying appropriate strategies or are willing to increase activities designed to help pt with word-finding. [ End ] Objective Treatment Activities Pt has not returned to the clinic D/C Plan Therapy Recommendations Discharge from Speech Therapy
== END 2020-08-04 08:45 ==
LOC: SP 15:16
PROVIDERS: PCP Family Medicine; Referring Provider Family Medicine; Visit Provider Family Medicine
DX: F03.90 Unspecified dementia, unspecified severity, without behavioral disturbance, psychotic disturbance, mood disturbance, and anxiety (principal)
CPT/HCPCS: 92523

== ENCOUNTER → 2020-09-08 08:09 | Outpatient (CLI) | payer MEDICARE, OTHER, SELFPAY ==
[2020-09-08 10:12] LABS: Alanine Aminotransferase 15 IU/L (<35); Albumin 4.2 g/dL (3.5-5.0); Albumin Globulin Ratio 1.4 (1.0-2.8); Alkaline Phosphatase 80 U/L (38-126); Aspartate Aminotransferase 24 IU/L (14-36); BUN Creatinine Ratio 33.3 (6-22); Bilirubin Total 0.5 mg/dL (0.2-1.3); Blood Urea Nitrogen 21 mg/dL (7-17); Calcium 9.4 mg/dL (8.4-10.2); Carbon Dioxide 34 mmol/L (22-32); Chloride 102 mmol/L (98-107); Cholesterol 252 mg/dL (140-199); Estimated Glomerular Filt Rate > 60.0 mL/min (>60); Glucose 87 mg/dL (80-110); HDL Cholesterol 55 mg/dL (40-60); HEMOLYSIS < 15 (0-50); LDL Cholesterol Calculated 164 mg/dL (<100); Potassium 4.2 mmol/L (3.4-5.1); Sodium 139 mmol/L (137-145); Total Protein 7.2 g/dL (6.3-8.2); Triglycerides 164 mg/dL (35-150)
== END ==
PROVIDERS: PCP Family Medicine; Referring Provider Family Medicine; Visit Provider Family Medicine
DX: E78.5 Hyperlipidemia, unspecified (principal)
CPT/HCPCS: 36415; 80053; 80061

== ENCOUNTER → 2021-05-04 13:17 | Outpatient (CLI) | payer MEDICARE, OTHER, SELFPAY ==
--- NOTE | 2021-05-04 13:19 | DI.RAD.S_ITS ---
PROCEDURE: XR LUMBAR SPINE MIN 4V INDICATIONS: BACK PAIN TECHNIQUE: 5 views of the lumbar spine were acquired, including bilateral oblique views COMPARISON: Reference is made to the MRI lumbar spine dated February 25, 2019. FINDINGS: Bones: 5 nonrib-bearing vertebrae are present. Moderate disc height loss at L3-4 with endplate sclerosis. No vertebral body compression fractures. No suspicious bony lesions. Soft tissues: Overlying bowel gas pattern is normal. Mild calcified atheromatous change of the aorta. Oblique images: No pars defects. IMPRESSION: Moderate disc height loss at L3-4 with endplate sclerosis. Dictated by: Joon Apodaca M.D. on 05/04/2021 at 13:57 Approved by: Joon Apodaca M.D. on 05/04/2021 at 14:45
== END ==
PROVIDERS: PCP Family Medicine; Referring Provider Physical Medicine & Rehabilitation; Visit Provider Physical Medicine & Rehabilitation
DX: M47.27 Other spondylosis with radiculopathy, lumbosacral region (principal); G30.1 Alzheimer's disease with late onset; F02.80 Dementia in other diseases classified elsewhere, unspecified severity, without behavioral disturbance, psychotic disturbance, mood disturbance, and anxiety
CPT/HCPCS: 72110; 99214

== ENCOUNTER → 2021-05-09 08:35 | Outpatient (CLI) | payer MEDICARE, OTHER, SELFPAY ==
[2021-05-09 16:35] LABS: COVID19 -Nasal RAPID Negative (Negative)
== END ==
PROVIDERS: PCP Family Medicine; Referring Provider Physical Medicine & Rehabilitation; Visit Provider Physical Medicine & Rehabilitation
DX: Z20.822 Contact with and (suspected) exposure to COVID-19 (principal)
CPT/HCPCS: 87635; C9803

== ENCOUNTER 2021-05-10 13:34 | Outpatient (CLI) | payer MEDICARE, OTHER, SELFPAY ==
[2021-05-10] VITALS (8 sets, daily range): BP systolic 115–134; BP diastolic 62–89; PULSE 68–75; RESP 12–24; TEMP 36.6; O2SAT 96–100
--- NOTE | 2021-05-10 13:42 | DI.RAD.S_ITS ---
PROCEDURE: PAIN L/S TRANSFORAMINAL INJECT INDICATIONS: SPONDYLOSIS COMPARISON: [facility], , PAIN L/S TRANSFORAMINAL INJECT, 05/20/2019, 15:26. FINDINGS: Fluoroscopic spot filming was performed to verify placement of a spinal needle on the right at the L4-L5 level, as labeled on the films. Appropriate location of the needle tip was confirmed by injection of iodinated contrast. IMPRESSION: Intraprocedural examination within normal limits. Dictated by: Luis Alberto Woods M.D. on 05/10/2021 at 14:35 Approved by: Luis Alberto Woods M.D. on 05/10/2021 at 14:35
--- NOTE | 2021-05-10 13:47 | P.PCN_ITS ---
Date/Time/Diagnoses Date of procedure: 05/10/21 Time of procedure: 14:48 Pre-procedure diagnosis: 1. FORAMINAL STENOSIS WITH LE SYMPTOMS Post-procedure diagnosis: same Procedure Notes Procedure: 1. FLUOROSCOPICALLY GUIDED CONTRAST CONTROLLED TRANSFORAMINAL EPIDURAL STEROID INJECTION - RIGHT L4/5 TFESI Indications: Lanette is referred by Dr. Kuhn for treatment of Foraminal Stenosis with Right LE Symptoms Physician: Blaze Valencia Total Fluoroscopy time (seconds): 8 Total sedation minutes: 9 Complications: none Procedure in detail & Post-procedure care: FINDINGS Foraminal Nerve Root Compression secondary to disc disease and facet hypertrophy DESCRIPTION OF PROCEDURE Following review of allergy and review of potential side effects and complications, including, but not necessarily limited to, infection, allergic reaction, local tissue breakdown, stroke, temporary or permanent nerve injury, paralysis, and possible , the patient indicated that the patient understood and agreed to proceed. An informed consent document was signed by the patient, witnessed by a nurse, and placed in the patient's chart. Additionally, other treatment options including medications, modalities, and physical therapy were reviewed with the patient. After review of previous anaesthesic history and IV conscious sedation the patient was deemed safe to proceed with today?s procedure with IV conscious sedation as ASA class II designation. Safety time-out was performed to confirm patient ID, procedure to be performed and site of procedure. IV sedation was accomplished with a combination of 2mg of Versed was administered by the RN after DO order, titrated to patient comfort during the course of the procedure while the patient remained responsive to all verbal commands In the prone position following sterile prep and drape of the lumbar region, the right L4/5 posterior neuroforamen was identified fluoroscopically. The skin was anesthetized via a 25-gauge 1.5-inch needle with 1% lidocaine solution. At this point, a 25-gauge 3.5-inch spinal needle was atraumatically introduced and advanced under fluoroscopic guidance through the posterior right L4/5 neuroforamen to approximately the anterior aspect of the canal. Depth was confirmed on lateral view. Following negative aspiration, injection of approximately 1.5cc of Isovue 200 under live fluoroscopy in the AP view confi rmed excellent flow along the nerve root, into the epidural space without vascular or intrathecal uptake observed Radiological data, including multiple fluoroscopic views of the lumbosacral spine, reveal a spinal needle at the right L4/5 posterior neuroforamen. Subsequent views show flow of contrast material flowing superiorly and inferiorly along the nerve root confirming epidural flow. Subsequently, a test dose of 1.5 cc of 1% lidocaine solution was administered and patient was observed for two minutes for signs or symptoms of complications, including abdominal pain, shortness of breath, bilateral upper or lower extremity weakness, nausea and vomiting, prior to steroid injection. At this point, a total of 4cc or 20mg of dexamethasone and 12mg of betamethasone was injected without incident. The procedure tolerated the procedure well without signs or symptoms of complications prior to transfer to the recovery area continued monitoring without incident. The patient was then transferred to the recovery area where they were observed for an appropriate time after the injection. The patient reported a VAS score of 7 prior to the procedure and a post- procedure VAS of 0. POST OP INSTRUCTIONS The patient was provided a Pain Log to continue to record their response to the target-specific procedure prior to follow-up visit with their referring ph ysician. Additionally, specific post-injection care instructions and a contact number to our office were provided if concerns arise regarding possible complications associated with the procedure are suspected.
[2021-05-10] MEDS: MIDAZOLAM 5 MG/5 ML VIAL IV (14:32)
[2021-05-10] MEDS: IOPAMIDOL 15 ML VIAL 3 ML INJ (14:39)
[2021-05-10] MEDS: BUPIVACAINE 0.25% (PF) VIAL 2 ML INJ (14:39)
[2021-05-10] MEDS: BETAMETHASONE 30 MG/5 ML MDV 12 MG INJ (14:39)
[2021-05-10] MEDS: DEXAMETHASONE 10 MG/ML VIAL 20 MG INJ (14:40)
== END 2021-05-10 15:10 | disposition home or self-care (01) ==
LOC: RAD 13:36
PROVIDERS: PCP Family Medicine; Referring Provider Physical Medicine & Rehabilitation; Visit Provider Physical Medicine & Rehabilitation
DX: M48.061 Spinal stenosis, lumbar region without neurogenic claudication (principal); M51.16 Intervertebral disc disorders with radiculopathy, lumbar region
CPT/HCPCS: 64483; J0702; J1100; J2250; J3010

== ENCOUNTER → 2021-10-20 14:33 | Outpatient (CLI) | payer MEDICARE, OTHER, SELFPAY ==
[2021-10-20 15:29] LABS: Add Manual Diff / Slide Review NO; Basophils Absolute Auto 0 /uL (0-100); Basophils Percent Auto 0.3 % (0-2); Eosinophils Absolute Auto 100 /uL (0-450); Eosinophils Percent Auto 1.3 % (2-4); Hematocrit 37.1 % (36-46); Hemoglobin 12.5 g/dL (12.0-16.0); Lymphocytes Absolute Auto 1600 /uL (1100-4500); Lymphocytes Percent Auto 29.3 % (25-40); Mean Corpuscular HGB Conc 33.6 % (30-36); Mean Corpuscular Hemoglobin 30.5 PG (26-34); Mean Corpuscular Volume 90.8 fL (80-100); Monocytes Absolute Auto 400 /uL (0-900); Monocytes Percent Auto 6.8 % (3-14); Neutrophils Absolute Auto 3400 /uL (1500-7000); Neutrophils Percent Auto 62.3 % (50-75); Platelet Count 246 X10^3/uL (150-400); Red Blood Cell Count 4.08 X10^6/uL (4.0-5.2); Red Cell Distribution Width 13.2 % (11.6-14.8); White Blood Cell Count 5.4 X10^3/uL (4.5-11.0)
[2021-10-20 15:49] LABS: Alanine Aminotransferase 15 IU/L (<35); Albumin 4.3 g/dL (3.5-5.0); Albumin Globulin Ratio 1.4 (1.0-2.8); Alkaline Phosphatase 66 U/L (38-126); Aspartate Aminotransferase 26 IU/L (14-36); BUN Creatinine Ratio 25.6 (6-22); Bilirubin Total 0.4 mg/dL (0.2-1.3); Blood Urea Nitrogen 20 mg/dL (7-17); Calcium 8.4 mg/dL (8.4-10.2); Carbon Dioxide 31 mmol/L (22-32); Chloride 103 mmol/L (98-107); Cholesterol 229 mg/dL (140-199); Estimated Glomerular Filt Rate > 60.0 mL/min (>60); Globulin 3.1 g/dL (1.7-4.1); Glucose 85 mg/dL (80-110); HDL Cholesterol 53 mg/dL (40-60); HEMOLYSIS < 15 (0-50); LDL Cholesterol Calculated 137 mg/dL (<100); Sodium 141 mmol/L (137-145); Total Protein 7.4 g/dL (6.3-8.2); Triglycerides 196 mg/dL (35-150)
== END ==
PROVIDERS: PCP Family Medicine; Referring Provider Family Medicine; Visit Provider Family Medicine
DX: E78.5 Hyperlipidemia, unspecified (principal); G30.1 Alzheimer's disease with late onset; F02.80 Dementia in other diseases classified elsewhere, unspecified severity, without behavioral disturbance, psychotic disturbance, mood disturbance, and anxiety; F98.8 Other specified behavioral and emotional disorders with onset usually occurring in childhood and adolescence
CPT/HCPCS: 36415; 80053; 80061; 85025

== ENCOUNTER 2022-02-04 11:02 | Emergency (ER) | payer MEDICARE, OTHER, SELFPAY ==
[2022-02-04] VITALS (14 sets, daily range): BP systolic 148–164; BP diastolic 67–74; PULSE 56–68; RESP 18; TEMP 36.4; O2SAT 97–100; BMI 28.9
[2022-02-04 11:33] LABS: Add Manual Diff / Slide Review NO; Basophils Absolute Auto 0 /uL (0-100); Basophils Percent Auto 0.4 % (0-2); Eosinophils Absolute Auto 0 /uL (0-450); Eosinophils Percent Auto 0.9 % (2-4); Hematocrit 35.9 % (36-46); Hemoglobin 12.1 g/dL (12.0-16.0); Lymphocytes Absolute Auto 1300 /uL (1100-4500); Lymphocytes Percent Auto 24.1 % (25-40); Mean Corpuscular HGB Conc 33.6 % (30-36); Mean Corpuscular Hemoglobin 30.4 PG (26-34); Mean Corpuscular Volume 90.5 fL (80-100); Monocytes Absolute Auto 400 /uL (0-900); Monocytes Percent Auto 7.9 % (3-14); Neutrophils Absolute Auto 3700 /uL (1500-7000); Neutrophils Percent Auto 66.7 % (50-75); Platelet Count 227 X10^3/uL (150-400); Red Blood Cell Count 3.97 X10^6/uL (4.0-5.2); Red Cell Distribution Width 13.4 % (11.6-14.8); White Blood Cell Count 5.6 X10^3/uL (4.5-11.0)
[2022-02-04 11:42] LABS: Alanine Aminotransferase 16 IU/L (<35); Albumin 4.1 g/dL (3.5-5.0); Albumin Globulin Ratio 1.6 (1.0-2.8); Alkaline Phosphatase 75 U/L (38-126); Aspartate Aminotransferase 25 IU/L (14-36); BUN Creatinine Ratio 22.1 (6-22); Bilirubin Total 0.4 mg/dL (0.2-1.3); Blood Urea Nitrogen 17 mg/dL (7-17); Calcium 8.7 mg/dL (8.4-10.2); Carbon Dioxide 29 mmol/L (22-32); Chloride 105 mmol/L (98-107); Estimated Glomerular Filt Rate > 60 mL/min (>60); Globulin 2.6 g/dL (1.7-4.1); Glucose 95 mg/dL (80-110); HEMOLYSIS < 15 (0-50); Lipase 431 U/L (23-300); Potassium 3.6 mmol/L (3.4-5.1); Sodium 139 mmol/L (137-145); Total Protein 6.7 g/dL (6.3-8.2)
[2022-02-04 12:01] LABS: RBC Urine None Seen (0-5/HPF); Squamous Epithelial Cell Urine 10-30 /HPF (0-5/HPF); WBC Urine 1-5/HPF (0-5/HPF)
[2022-02-04 12:02] LABS: Bacteria Urine Moderate (10-30); Transitional Epi Cells Urine 1-5/HPF (0-5/HPF)
--- NOTE | 2022-02-04 14:41 | ED_ITS ---
HPI - Abdominal Pain General Chief Complaint: Abdominal Pain Stated Complaint: Severe Stomach Cramping Time Seen by Provider: 02/04/22 12:05 Source: patient and family Mode of arrival: Ambulatory History of Present Illness HPI narrative: This 76-year-old woman who suffers from chronic dementia lives in an adult family home type setting and was brought to the emergency department today by her daughter who was called by the caregivers when she had a vomiting episode this morning. She apparently became shaky and was complaining of abdominal pain and vomited. The patient is not able to really describe what happened accurately. Currently she says that her stomach feels a little bit better but is still suffering from a little bit of nausea. She denies chest pain, shortness of breath, fever, headache, any pain in her extremities or recent trauma. Past history includes lumbar radiculopathy, dementia, anxiety. Related Data Home Medications Medication Instructions Recorded Confirmed ibuprofen 400 mg tablet 400 mg PO Q6H PRN pain 12/08/19 01/27/22 Previous Rx's Medication Instructions Recorded loratadine 10 mg tablet (Claritin) 10 mg PO DAILY #90 tabs 10/27/19 memantine 10 mg tablet 10 mg PO BID #180 tabs 07/20/21 escitalopram oxalate 10 mg tablet 10 mg PO DAILY #90 tabs 11/14/21 clonidine HCl 0.1 mg tablet 0.1 mg PO QDAY #90 tabs 01/27/22 dextroamphetamine-amphetamine 10 10 mg PO BID ADD, dementia #60 tabs 01/27/22 mg tablet ciprofloxacin HCl 500 mg tablet 500 mg PO Q12H #14 tabs 02/04/22 metronidazole 500 mg tablet 500 mg PO TID #14 tabs 02/04/22 ondansetron 4 mg disintegrating 4 mg PO Q6H #10 tabs 02/04/22 tablet Allergies Allergy/AdvReac Type Severity Reaction Status Date / Time rivastigmine [RIVASTIGMINE] Allergy Intermediate nausea/vomiting/abd Verified 01/27/22 15:21 pain codeine Allergy Mild VOMITING Verified 01/27/22 15:21 latex Allergy Mild LOCAL RASH Verified 01/27/22 15:21 adhesive AdvReac Mild SENSITIVE Verified 01/27/22 15:21 bupropion [From WELLBUTRIN] AdvReac Unknown hallucinati Verified 01/27/22 15:21 ons/disorie ntation Review of Systems Review of Systems Narrative: Review of systems is as noted above but completely limited because of the patient's dementia Patient History Medical History Anxiety (05/01/14) Attention deficit disorder (06/07/11) Basal cell carcinoma of upper arm (~05/2020) Dementia Diarrhea Diverticulosis Family history of drug dependence (06/28/15) Hyperlipidemia IBS (irritable bowel syndrome) Initial insomnia (05/16/17) Lumbar radiculopathy Migraines Mild cognitive impairment (05/16/17) Other and unspecified hyperlipidemia (03/05/13) Prolapse of anterior vaginal wall (06/29/14) Prolapse of posterior vaginal wall (06/29/14) Rosacea Spondylosis of lumbosacral region without myelopathy or radiculopathy Varicose veins of vulva and perineum (06/29/14) Surgical History Status post cholecystectomy Status post colonoscopy (08/01/12) Status post hysterectomy with oophorectomy (~1992) Status post osteotomy Family History Mother Age: 96 Dementia without behavioral disturbance, unspecified dementia type Father No problems noted. Social History marital status: number of children: 3 Smoking Status: Former smoker Tobacco: How many years used: 25 quit status: has quit before Smoking Status: Former smoker alcohol intake frequency: a few times a month Substance Use Type: does not use Exam Narrative Exam Narrative: GENERAL: Alert, cooperative and in no distress. HEAD: Atraumatic. Normocephalic. EYES: Sclera are clear without icterus. Extraocular movements are full. ENT: No rhinorrhea. Oropharynx is moist. Mouth exam is benign. NECK: Supple. Full range of motion. CARDIOVASCULAR: Normal rate and rhythm without murmur gallop or rub. RESPIRATORY: Clear to auscultation. Breath sounds equal bilaterally. No wheezes, rales, or rhonchi. GASTROINTESTINAL: Abdomen soft, non-tender, nondistended. EXTREMITIES: No edema, full range of motion. No obvious trauma. BACK: Normal inspection, no CVA tenderness. NEURO: Nonfocal examination, normal speech, normal gait. SKIN: No rash or erythema of visible areas PSYCH: Normally oriented. Normal range of affect. Appropriate behavior Initial Vital Signs Initial Vital Signs: Vital Signs Temperature 97.6 F 02/04/22 11:05 Pulse Rate 66 02/04/22 11:05 Respiratory Rate 18 02/04/22 11:05 Blood Pressure 149/74 H 02/04/22 11:05 Pulse Oximetry 99 02/04/22 11:05 Oxygen Delivery Method 02/04/22 11:05 Course Course Course Narrative: Saw the patient again just now at 2:49 p.m.. She shaking and sitting on the edge of the bed feeling very uncomfortable. She reports abdominal pain but I can not palpate her abdomen everywhere in cannot reproduce the pain. Her daug hter is very worried about how ill she looks right now. At this point will order CT abdomen and pelvis with contrast and IV pain medication and anti nausea medication. Orders Ordered: ED Orders 02/04/22 11:20 Complete Blood Count AUTO DIFF Stat Comprehensive Metabolic Panel Stat Lipase Stat 02/04/22 11:25 EKG-12 Lead Stat 02/04/22 11:51 Urine Culture Stat Urine Microscopic Stat 02/04/22 14:52 CT abdomen pelvis w con Stat Fentanyl (Fentanyl 100 Mcg/2 Ml Inj) 80 mcg 1 mcg/kg (80 mcg) IV Q1H PRN PRN Reason: Pain, Moderate (4-6) Last Admin: 02/04/22 15:12 Dose: 80 mcg Documented By: HALIE Ondansetron HCl (Ondansetron 4 Mg/2 Ml Inj) 4 mg IV Q2HR PRN PRN Reason: Nausea And Vomiting Last Admin: 02/04/22 15:12 Dose: 4 mg Documented By: HALIE Ondansetron HCl (Ondansetron 4 Mg/2 Ml Inj) 4 mg IV Q2HR PRN PRN Reason: Nausea And Vomiting Discontinued Medications Sodium Chloride (Normal Saline 0.9%) 1,000 mls @ 1,000 mls/hr IV BOLUS ONE Stop: 02/04/22 15:49 Last Admin: 02/04/22 15:13 Dose: 1,000 mls/hr Documented By: HALIE Vital Signs Vital signs: Vital Signs - 8 hr 02/04/22 11:05 02/04/22 11:18 02/04/22 11:30 Temperature 97.6 F Pulse Rate 66 61 59 L Respiratory Rate 18 Blood Pressure 149/74 H Pulse Oximetry 99 99 100 Oxygen Delivery Method Room Air 02/04/22 12:00 02/04/22 12:30 02/04/22 13:00 Temperature Pulse Rate 58 L 60 62 Respiratory Rate Blood Pressure Pulse Oximetry 99 100 100 Oxygen Delivery Method 02/04/22 13:31 02/04/22 14:00 02/04/22 15:37 Temperature Pulse Rate 60 61 56 L Respiratory Rate Blood Pressure Pulse Oximetry 97 100 Oxygen Delivery Method 02/04/22 15:39 02/04/22 15:39 02/04/22 16:00 Temperature Pulse Rate 57 L Respiratory Rate Blood Pressure 155/70 H 148/67 H Pulse Oximetry 100 Oxygen Delivery Method 02/04/22 16:00 Temperature Pulse Rate 64 Respiratory Rate Blood Pressure Pulse Oximetry 100 Oxygen Delivery Method MDM - Abdominal Pain Lab Data Result diagrams: 02/04/22 11:20 02/04/22 11:20 Labs: Lab Results 02/04/22 02/04/22 02/04/22 Range/Units 11:20 11:20 11:51 WBC 5.6 (4.5-11.0) X10^3/uL RBC 3.97 L (4.0-5.2) X10^6/uL Hgb 12.1 (12.0-16.0) g/dL Hct 35.9 L (36-46) % MCV 90.5 (80-100) fL MCH 30.4 (26-34) PG MCHC 33.6 (30-36) % RDW 13.4 (11.6-14.8) % Plt Count 227 (150-400) X10^3/uL Neut % (Auto) 66.7 (50-75) % Lymph % (Auto) 24.1 L (25-40) % [place] % (Auto) 7.9 (3-14) % Eos % (Auto) 0.9 L (2-4) % Baso % (Auto) 0.4 (0-2) % Neut # (Auto) 3700 (9189-5594) /uL Lymph # (Auto) 1300 (3926-2206) /uL [place] # (Auto) 400 (0-900) /uL Eos # (Auto) 0 (0-450) /uL Baso # (Auto) 0 (0-100) /uL Sodium 139 (137-145) mmol/L Potassium 3.6 (3.4-5.1) mmol/L Chloride 105 (98-107) mmol/L Carbon Dioxide 29 (22-32) mmol/L BUN 17 (7-17) mg/dL Creatinine 0.77 (0.52-1.04) mg/dL Estimated GFR > 60 (>60) mL/min BUN/Creatinine Ratio 22.1 H (6-22) Glucose 95 (80-110) mg/dL Calcium 8.7 (8.4-10.2) mg/dL Total Bilirubin 0.4 (0.2-1.3) mg/dL AST 25 (14-36) IU/L ALT 16 (<35) IU/L Alkaline Phosphatase 75 (38-126) U/L Total Protein 6.7 (6.3-8.2) g/dL Albumin 4.1 (3.5-5.0) g/dL Globulin 2.6 (1.7-4.1) g/dL Albumin/Globulin Ratio 1.6 (1.0-2.8) Lipase 431 H (23-300) U/L Urine RBC None seen (0-5/HPF) Urine WBC 1-5/hpf (0-5/HPF) Ur Squamous Epith Cells 10-30 /hpf H (0-5/HPF) Ur Transition Epith Cell 1-5/hpf (0-5/HPF) Urine Bacteria Moderate (10-30) H (None) Ur Culture Indicated? Culture not indicate Point of care testing: Urine Dip Bedside Urine Glucose Negative Bedside Urine Bilirubin - Negative Bedside Urine Ketone - Negative Urine Specific [place] 1.015 Bedside Urine Occult Blood - Negative Bedside Urine pH 7.5 Bedside Urine Protein - Negative Bedside Urine Urobilinogen 0.2 Bedside Urine Nitrite - Negative Bedside Urine Leukocytes + [address] scan - abdomen/pelvis: Radiologist's Impression: IMPRESSION:? ? Likely mild sigmoid diverticulitis. ? No findings of perforation or abscess are seen. ? When clinically appropriate (following adequate treatment of the patient's current clinical episode) a colonoscopy is recommended for further evaluation for a potential underlying mass (if not already recently done). ? ? Incidental note is made of: Small hiatal hernia Cholecystectomy Prior granulomatous exposure. ? Moderate fat containing periumbilical hernia Hysterectomy Dextroconvex scoliotic curvature Lower lumbar spine degenerative change ? Dictated by: Luis Alberto Woods M.D. on 02/04/2022 at 14:40 ? ? Approved by: Luis Alberto Woods M.D. on 02/04/2022 at 14:43 Discharge Plan Departure Patient Disposition: Home Clinical Impression: Diverticulitis Instructions: DI for Diverticulitis Activity Restrictions/Additional Instructions: After detailed evaluation it appears that you have diverticulitis. It is not a severe case. I expected to get better quickly with oral antibiotics. Once in a while people need to be hospitalized for this condition so come right back to the hospital if you are getting worse with high fevers, repeated vomiting or generally feeling too sick to get up and walk around and do normal activities. Drink plenty of fluid, take Tylenol and ibuprofen as needed for pain. Use ondansetron as needed for nausea. Follow-up with your doctor in 10-12 days for recheck Prescriptions: New ciprofloxacin HCl 500 mg tablet 500 mg PO Q12H Qty: 14 0RF metronidazole 500 mg tablet 500 mg PO TID Qty: 14 0RF ondansetron 4 mg tablet,disintegrating 4 mg PO Q6H Qty: 10 0RF No Action loratadine [Claritin] 10 mg tablet 10 mg PO DAILY Qty: 90 1RF memantine 10 mg tablet 10 mg PO BID Qty: 180 3RF escitalopram oxalate 10 mg tablet 10 mg PO DAILY Qty: 90 1RF ibuprofen 400 mg tablet 400 mg PO Q6H PRN (Reason: pain) dextroamphetamine-amphetamine 10 mg tablet 10 mg PO BID Qty: 60 0RF clonidine HCl 0.1 mg tablet 0.1 mg PO QDAY Qty: 90 0RF Referrals: Amanda Cash MD [Primary Care Provider] -
--- NOTE | 2022-02-04 14:52 | DI.CT.S_ITS ---
PROCEDURE: CT ABDOMEN PELVIS W CON INDICATIONS: abdominal pain TECHNIQUE: After the administration of oral and IV contrast, axial sections were acquired from the lung bases to the pubic symphysis. Coronal and sagittal reformats were performed. For radiation dose reduction, the following was used: automated exposure control, adjustment of mA and/or kV according to patient size. COMPARISON: None. FINDINGS: Image quality: Excellent. Lung bases: Unremarkable. A small hiatal hernia is incidentally noted. Heart: No significant findings. ABDOMEN: Liver: Unremarkable. Gallbladder: Removed. Biliary ducts: Unremarkable. Pancreas: Unremarkable. Spleen: Calcified granulomas can be seen within the spleen. The spleen demonstrates normal size and demonstrates no focal abnormality. Adrenal Glands: Unremarkable. Kidneys and Ureters: Unremarkable. Stomach and Bowel: Extensive distal colonic diverticulosis is seen, with minimal fat stranding seen adjacent to the sigmoid colon. Mild wall thickening can be seen within this region. No additional significant colonic abnormality is seen. No dilated loops of small bowel are seen. The stomach is relatively collapsed, which limits its evaluation. Peritoneum: Negative for abscess. No abnormal intraperitoneal fluid. No free air. Ventral Wall: There is a moderately sized fat containing periumbilical hernia Abdominal Nodes: No retroperitoneal or mesenteric adenopathy by size criteria. Vessels: Aorta and inferior vena cava are normal in size. PELVIS: Pelvic Organs: This patient is status post hysterectomy. No adnexal masses are seen. Bladder: Unremarkable. Pelvic Nodes: No enlarged lymph nodes. Miscellaneous: No inguinal hernias are seen. Bones: Mild dextroconvex scoliotic curvature is seen. Degenerative changes are seen throughout, which are worst within the lower lumbar spine. IMPRESSION: Likely mild sigmoid diverticulitis. No findings of perforation or abscess are seen. When clinically appropriate (following adequate treatment of the patient's current clinical episode) a colonoscopy is recommended for further evaluation for a potential underlying mass (if not already recently done). Incidental note is made of: Small hiatal hernia Cholecystectomy Prior granulomatous exposure. Moderate fat containing periumbilical hernia Hysterectomy Dextroconvex scoliotic curvature Lower lumbar spine degenerative change Dictated by: Luis Alberto Woods M.D. on 02/04/2022 at 14:40 Approved by: Luis Alberto Woods M.D. on 02/04/2022 at 14:43
[2022-02-04] MEDS: fentaNYL 100 MCG/2 ML INJ 80 MCG IV (15:12)
[2022-02-04] MEDS: ONDANSETRON 4 MG/2 ML INJ IV ×2 (15:12→17:56)
[2022-02-04] MEDS: SODIUM CHLORIDE 0.9% 1,000 ML 1000 ML IV (15:13)
[2022-02-04] MEDS: CIPROFLOXACIN 250 MG TABLET 500 MG PO (17:56)
[2022-02-04] MEDS: metroNIDAZOLE 500 MG TABLET PO (17:57)
== END 2022-02-04 18:12 | disposition home or self-care (01) ==
PROVIDERS: Emergency Provider Family Medicine Addiction Medicine; PCP Family Medicine
DX: K57.92 Diverticulitis of intestine, part unspecified, without perforation or abscess without bleeding (principal); R11.2 Nausea with vomiting, unspecified; F03.90 Unspecified dementia, unspecified severity, without behavioral disturbance, psychotic disturbance, mood disturbance, and anxiety; R03.0 Elevated blood-pressure reading, without diagnosis of hypertension
CPT/HCPCS: 36415; 74177; 80053; 81003; 81015; 83690; 85025; 87086; 93005; 93010; 96361; 96374; 96375; 96376; 99284; J2405; J3010; Q9967

== ENCOUNTER → 2022-02-18 15:00 | Outpatient (CLI) | payer MEDICARE, OTHER, SELFPAY ==
--- NOTE | 2022-02-18 15:05 | DI.RAD.S_ITS ---
PROCEDURE: XR HIP W PEL IF DONE LT 2V INDICATIONS: hip pain TECHNIQUE: <.2 views of the hip were acquired. COMPARISON: [facility], CT, CT ABDOMEN PELVIS W CON, 02/04/2022, 15:26. FINDINGS: Bones: No fractures or dislocations. No suspicious bony lesions. The visualized pelvic ring appears intact. Mild degenerative osteophytosis. Joint spacing is maintained. Soft tissues: No suspicious soft tissue calcifications or masses. IMPRESSION: Mild osteoarthritis Dictated by: Alfred Elizabeth D.O. on 02/18/2022 at 15:15 Approved by: Alfred Elizabeth D.O. on 02/18/2022 at 15:16
--- NOTE | 2022-02-18 15:05 | DI.RAD.S_ITS ---
PROCEDURE: XR LUMBAR SPINE 2-3V INDICATIONS: back pain TECHNIQUE: 3 views of the lumbar spine were acquired. COMPARISON: [facility], CT, CT ABDOMEN PELVIS W CON, 02/04/2022, 15:26. [facility], CR, XR LUMBAR SPINE MIN 4V, 05/04/2021, 13:28. FINDINGS: Bones: 5 [id number] vertebrae are present. Mild dextrocurvature of the lumbar spine. No vertebral body compression fractures. No suspicious bony lesions. Complete intervertebral disc space loss noted L3-L4 and L5-S1 with endplate degenerative changes. Mild facet arthropathy worse within the lower lumbar spine. Soft tissues: Surgical clips noted within the upper abdomen. Vascular calcifications. Overlying bowel gas pattern is normal. IMPRESSION: Multilevel lumbar spondylopathy worse at L3-L4 and L5-S1 where there is complete intervertebral disc space loss. Dictated by: Alfred Elizabeth D.O. on 02/18/2022 at 15:12 Approved by: Alfred Elizabeth D.O. on 02/18/2022 at 15:15
== END ==
PROVIDERS: PCP Family Medicine; Referring Provider Physician Assistant; Visit Provider Physician Assistant
DX: M47.816 Spondylosis without myelopathy or radiculopathy, lumbar region (principal); M47.817 Spondylosis without myelopathy or radiculopathy, lumbosacral region; M16.12 Unilateral primary osteoarthritis, left hip; M54.50 Low back pain, unspecified; M25.552 Pain in left hip
CPT/HCPCS: 72100; 73502

== ENCOUNTER 2022-07-08 17:41 | Emergency (ER) | payer MEDICARE, OTHER, SELFPAY ==
[2022-07-08] VITALS (10 sets, daily range): BP systolic 113–164; BP diastolic 55–77; PULSE 65–69; RESP 18; TEMP 37.1; O2SAT 98–99; BMI 26.6
--- NOTE | 2022-07-08 19:21 | ED.GENADULT ---
HPI - General Adult General Chief complaint: Skin/Abscess/Foreign Body Stated complaint: Abd Pain R side Time Seen by Provider: 07/08/22 17:44 History of Present Illness HPI narrative: 77-year-old woman with history of dementia and recurrent episodes of folliculitis she currently has an area on the right buttock that is healing nicely the right andrade that still needs additional help with some mild surrounding cellulitis and axillary small perifollicular abscesses that are beginning to drain spontaneously. There is no surrounding cellulitis there. She has not been having a fever. She does complain of tenderness in the axilla bilaterally. Her daughter notes that she is had a decreased appetite she is been somewhat more depressed and sad over the last couple of days and complaining of transient episodes of right upper quadrant pain. No fevers, cough, chills, palpitations, vomiting or diarrhea. Related Data Home Medications Medication Instructions Recorded Confirmed ibuprofen 400 mg tablet 400 mg PO Q6H PRN pain 12/08/19 05/19/22 Previous Rx's Medication Instructions Recorded loratadine 10 mg tablet (Claritin) 10 mg PO DAILY #90 tabs 10/27/19 memantine 10 mg tablet 10 mg PO BID #180 tabs 07/20/21 escitalopram oxalate 10 mg tablet 10 mg PO DAILY #90 tabs 11/14/21 lidocaine 5 % topical patch 1 patch topical DAILY #30 ea 02/18/22 dextroamphetamine-amphetamine 10 10 mg PO BID ADD, dementia #60 tabs 04/21/22 mg tablet clonidine HCl 0.1 mg tablet 0.1 mg PO QDAY #90 tabs 04/27/22 methylphenidate HCl 20 mg tablet 20 mg PO .COMPLEX ADD / memory #60 07/03/22 (Ritalin) tabs ondansetron 4 mg disintegrating 4 mg PO Q6H #10 tabs 07/05/22 tablet cephalexin 500 mg capsule 500 mg PO TID #30 caps 07/08/22 Allergies Allergy/AdvReac Type Severity Reaction Status Date / Time rivastigmine [RIVASTIGMINE] Allergy Intermediate nausea/vomiting/abd Verified 05/19/22 15:38 pain codeine Allergy Mild VOMITING Verified 05/19/22 15:38 latex Allergy Mild LOCAL RASH Verified 05/19/22 15:38 adhesive AdvReac Mild SENSITIVE Verified 05/19/22 15:38 bupropion [From WELLBUTRIN] AdvReac Unknown hallucinati Verified 05/19/22 15:38 ons/disorie ntation Review of Systems Review of Systems Narrative: Remainder of complete review of systems is otherwise unremarkable except for that included in the HPI. Patient History Medical History Anxiety (05/01/14) Attention deficit disorder (06/07/11) Basal cell carcinoma of upper arm (~05/2020) Dementia Diarrhea Diverticulosis Family history of drug dependence (06/28/15) Hyperlipidemia IBS (irritable bowel syndrome) Initial insomnia (05/16/17) Lumbar radiculopathy Migraines Mild cognitive impairment (05/16/17) Other and unspecified hyperlipidemia (03/05/13) Prolapse of anterior vaginal wall (06/29/14) Prolapse of posterior vaginal wall (06/29/14) Rosacea Spondylosis of lumbosacral region without myelopathy or radiculopathy Varicose veins of vulva and perineum (06/29/14) Surgical History Status post cholecystectomy Status post colonoscopy (08/01/12) Status post hysterectomy with oophorectomy (~1992) Status post osteotomy Family History Mother Age: 97 Dementia without behavioral disturbance, unspecified dementia type Father No problems noted. Social History marital status: number of children: 3 Smoking Status: Former smoker Tobacco: How many years used: 25 quit status: has quit before Smoking Status: Former smoker alcohol intake frequency: a few times a month Substance Use Type: does not use Exam Initial Vital Signs Initial Vital Signs: Vital Signs Pulse Rate 67 07/08/22 17:51 Pulse Oximetry 99 07/08/22 17:51 General: Healthy appearing, in no acute distress. Pleasantly demented with the daughter offering most of the history. HEENT: Moist mucous membranes, normal sclera with reactive pupils, Neck: No adenopathy supple Respiratory: Lungs are clear to auscultation, no wheezing no rales no rhonchi. Full and symmetrical air movement Cardiac: Regular rate and rhythm no murmurs no bruits Bilateral axilla; left with a perifollicular abscess that is draining with a bit more purulent material extruded out by me, similar finding on the right side with 2 small connecting perifollicular abscesses. Again more purulent material is extruded out. No surrounding significant cellulitis. Abdomen: Soft, nontender, good bowel tones, no flank pain Skin: Warm and dry, healing lesion over her right buttock with no abscess. Right anterior andrade with a shallow ulcer and 2-3 cm of expanding cellulitis and mild debris. Neurologic: Grossly neurologically intact with no obvious asymmetries or abnormalities Extremities: No trauma, well perfused Psych: Cooperative, appropriate insight and affect Course Orders Ordered: Discontinued Medications Bacitracin (Bacitracin Oint 0.9 Gm Pckt) 5 applic TOP NOW ONE Stop: 07/08/22 20:08 Cefazolin Sodium (Cephalexin 250 Mg Prepack) 1 bottle MISC SEEINSTR ONE Stop: 07/08/22 20:08 Cephalexin HCl (Cephalexin 250 Mg Capsule) 500 mg PO NOW ONE Stop: 07/08/22 20:08 Vital Signs Vital signs: Vital Signs - 8 hr 07/08/22 19:23 07/08/22 17:51 07/08/22 17:52 Temperature 98.7 F Pulse Rate 68 67 67 Respiratory Rate 18 Blood Pressure 142/64 H Pulse Oximetry 98 99 99 Oxygen Delivery Method Room Air 07/08/22 17:52 07/08/22 18:07 07/08/22 18:08 Temperature Pulse Rate Respiratory Rate Blood Pressure 164/77 H 128/64 Pulse Oximetry 98 Oxygen Delivery Method 07/08/22 18:08 07/08/22 18:30 07/08/22 18:30 Temperature Pulse Rate 68 66 Respiratory Rate Blood Pressure 138/61 Pulse Oximetry 98 99 Oxygen Delivery Method 07/08/22 19:00 07/08/22 19:01 07/08/22 19:01 Temperature Pulse Rate 68 69 Respiratory Rate Blood Pressure 142/64 H Pulse Oximetry 99 99 Oxygen Delivery Method 07/08/22 19:30 Temperature Pulse Rate 65 Respiratory Rate Blood Pressure Pulse Oximetry 99 Oxygen Delivery Method Medical Decision Making MDM Narrative Medical decision making narrative: 77-year-old woman with multiple areas of small perifollicular abscesses and superficial wounds. All of the abscesses or spontaneously draining and excess purulence was expressed at. All of these were dressed with antibiotic ointment and bandages. The wound on her buttock is healing nicely. The wound on her right anterior andrade will need additional care again is dressed with antibiotic ointment and Band-Aid. Given the recurrent episodes will ask her to continue Keflex it has been helpful in keeping these perifollicular areas under control. She is given 500 mg in the emergency department. She sent home with enough Keflex for 4 doses and an additional prescription for 10 further doses is given. Findings are reviewed with her daughter. [facility]. We did discuss using dial antibacterial soap with a small loop of or sponge to gently scrub at all of her skin and all of the ?cracks and creases, to try to overall decrease bacterial skin load and reduce future episodes. Will ask that she be assisted with the shower daily for a week and then 3 times a week after that. Questions are answered and she is safe for discharge home Discharge Plan Departure Patient Disposition: Home Clinical Impression: Folliculitis and perifolliculitis Cellulitis Qualifiers: Site of cellulitis: extremity Site of cellulitis of extremity: lower extremity Laterality: right Qualified Code(s): L03.115 - Cellulitis of right lower limb Instructions: DI for Cellulitis -- Adult, DI for Skin Abscess Activity Restrictions/Additional Instructions: Thank you for coming in today You do have small perifollicular abscesses in both of your arm pits. These are already draining and I was able to express some more purulence from them. They should heal nicely. The buttock wound is healing and the right andrade area needs more wound care and will certainly benefit from antibiotics. Orders: Topical antibiotic to axillary sites and right anterior andrade with dressing to right anterior andrade daily Prescription for Keflex, 500 mg 3 times a day for 10 days is written Prescription is electronically transmitted to [facility] Will need extra assistance for a week with showering. Recommend daily showers, using dial or other antibacterial soap with sponge, wash cloth or loofah to skin including axilla buttocks and groin creases. Will recommend showering with gentle scrubbing and antibacterial soap daily for 7 days and then to continue 3 times a week Will need to schedule follow-up with her primary care doctor prior to finishing the 10 days of antibiotics Prescriptions: New cephalexin 500 mg capsule 500 mg PO TID Qty: 30 0RF No Action lidocaine 5 % adhesive patch,medicated 1 patch topical DAILY Qty: 30 0RF Rx Instructions: leave on most painful area for up to 12 hrs loratadine [Claritin] 10 mg tablet 10 mg PO DAILY Qty: 90 1RF memantine 10 mg tablet 10 mg PO BID Qty: 180 3RF escitalopram oxalate 10 mg tablet 10 mg PO DAILY Qty: 90 1RF dextroamphetamine-amphetamine 10 mg tablet 10 mg PO BID Qty: 60 0RF Hold Instructions: pharmacy backorder, temporary methylphenidate clonidine HCl 0.1 mg tablet 0.1 mg PO QDAY Qty: 90 0RF methylphenidate HCl [Ritalin] 20 mg tablet 20 mg PO .COMPLEX Qty: 60 0RF Rx Instructions: 20 mg orally with breakfast and lunch; temporary switch while out of adderall ondansetron 4 mg tablet,disintegrating 4 mg PO Q6H Qty: 10 6RF ibuprofen 400 mg tablet 400 mg PO Q6H PRN (Reason: pain) Referrals: Leanna Santoyo DO [Primary Care Provider] -
[2022-07-08] MEDS: cephALEXin 250 MG CAPSULE 500 MG PO (20:19)
[2022-07-08] MEDS: cephALEXin 250 MG PREPACK 1 BOTTLE MISC (20:20)
[2022-07-08] MEDS: BACITRACIN OINT 0.9 GM PCKT 5 APPLIC TOP (20:20)
== END 2022-07-08 20:42 | disposition home or self-care (01) ==
PROVIDERS: Emergency Provider Emergency Medicine; PCP Family Medicine
DX: L03.115 Cellulitis of right lower limb (principal); L73.9 Follicular disorder, unspecified; R10.11 Right upper quadrant pain
CPT/HCPCS: 99283